=== PATIENT | female | born 1960 | race Caucasian/White ===

== ENCOUNTER 2024-05-21 07:57 | Day surgery (SDC) | payer OTHER ==
[~2024-05-21] VITALS: Ht 177.8 cm; Wt 83.2 kg
[~2024-05-21 07:57] MED LIST: Lactated Ringer's 1,000 ML IV ONE; propofoL 50 ML IV ONE
[2024-05-21] MEDS ORDERED: Calcium Carbon500 MG (08:24)
[2024-05-21] MEDS ORDERED: THERA-D2000 UNIT (08:24)
[2024-05-21] MEDS ORDERED: B-COMPLEX WITH1 EAC2 (08:24)
[2024-05-21] MEDS ORDERED: ONDA4ODT (08:25)
[2024-05-21] MEDS ORDERED: METAMUCIL POWD798 GM (08:25)
[2024-05-21] MEDS ORDERED: FISH OIL 1,0001 EA10 (08:25)
[2024-05-21] MEDS ORDERED: BEET ROOT-TART1 EACH (08:25)
[2024-05-21] MEDS ORDERED: [UNRECOGNIZED DRUG - OTHER] (08:26)
[2024-05-21] MEDS ORDERED: TRANSDERM-SCOP1 EA13 (08:26)
[2024-05-21] MEDS ORDERED: TURMERIC CURCU1 EACH (08:27)
[2024-05-21] MEDS ORDERED: Lactated Ringer's 1,000 ML IV ONE (09:12)
--- NOTE | 2024-05-21 09:15 | NUR ---
05/21/24 0915 Salome Alonzo PT. VERBALIZES HAVING CHRONIC BACK & NECK PAIN RATING A "4" . PT. VERBALIZES DEGENERATIVE DISC DISEASE & ARTHRITIS.
== END 2024-05-21 10:29 | disposition home or self-care (01) ==
LOC: ORSCSDS 07:57
PROVIDERS: Specialist
PROC: 0DBM8ZX Excision of Descending Colon, Via Natural or Artificial Opening Endoscopic, Diagnostic (ICD-10-PCS; principal; 2024-05-21 09:30)
DX: Z12.11 Encounter for screening for malignant neoplasm of colon (principal); R19.5 Other fecal abnormalities; D12.4 Benign neoplasm of descending colon; K64.8 Other hemorrhoids; K64.4 Residual hemorrhoidal skin tags
CPT/HCPCS: 88305; J2704; J7120